=== PATIENT | female | born 1995 | race Caucasian/White ===

== ENCOUNTER 2017-10-31 03:36 | Emergency (ER) | payer OTHER ==
[2017-10-31] MEDS ORDERED: ONDANSETRON 4 MG/2 ML VIAL IVP ONE ×2 (03:54→05:28)
[2017-10-31] MEDS ORDERED: NS 1,000 ML IV ONE ×2 (03:54)
[2017-10-31] MEDS ORDERED: KETOROLAC 30 MG/1 ML SDV IVP ONE (03:54)
[2017-10-31] MEDS ORDERED: HYDROmorphONE/DILAUDID 2 MG/ML INJ IVP ONE (03:54)
--- NOTE | 2017-10-31 03:58 | EDPHY ---
H & P Stated Complaint: LOWER ABD PAIN/VOMITING Time Seen by Provider: 10/31/17 03:48 HPI/ROS: HPI The patient presents with lower abdominal pain which began at about 8:00 p.m. Last night after eating dinner. The pain started gradually and has been constant throughout the night. She had some improvement after taking Tylenol at about 10:00 p.m.. As she awoke at 2:00 a.m. With severe pain and that is what brought her into the emergency department. The pain radiates to her flanks bilaterally and is rated as severe. She has had vomiting as well. She reports constipation over the last several days, having small bowel movements for 3 days. She has a Mirena IUD and is unsure of her last menstrual period. REVIEW OF SYSTEMS Constitutional: No fever, no chills. Eyes: No discharge. ENT: No sore throat. Cardiovascular: No chest pain, no palpitations. Respiratory: No cough, no shortness of breath. Gastrointestinal: No abdominal pain, no vomiting. Genitourinary: No hematuria. Musculoskeletal: No back pain. Skin: No rashes. Neurological: No headache. PMHx: Attention deficit hyperactivity disorder Soc Hx: FHx: PHYSICAL General Appearance: Alert, tearful and uncomfortable appearing Eyes: Pupils equal and round no pallor or injection ENT, Mouth: Mucous membranes moist Respiratory: There are no retractions, lungs are clear to auscultation Cardiovascular: Tachycardic rate and regular rhythm Gastrointestinal: Abdomen is soft and non-tender, no masses, bowel sounds normal Back, no CVA tenderness Neurological: A&O, moves all extremities Skin: Warm and dry, no rashes Musculoskeletal: Neck is supple non tender Extremities: symmetrical, full range of motion Psychiatric: Patient is oriented X 3, there is no agitation Source: Patient Exam Limitations: No limitations - Personal History LMP (Females 10-55): IUD In Place Current Tetanus Diphtheria and Acellular Pertussis (TDAP): Yes - Medical/Surgical History Hx Asthma: No Hx Chronic Respiratory Disease: No Hx Diabetes: No Hx Cardiac Disease: No Hx Renal Disease: No Hx Cirrhosis: No Hx Alcoholism: No Hx HIV/AIDS: No Hx Splenectomy or Spleen Trauma: No Other PMH: L EYE SX - Social History Smoking Status: Never smoked Constitutional: Initial Vital Signs Temperature (C) 37.0 C 10/31/17 03:42 Heart Rate 113 H 10/31/17 03:42 Respiratory Rate 20 10/31/17 03:42 Blood Pressure 113/81 H 10/31/17 03:42 O2 Sat (%) 98 10/31/17 03:42 O2 Delivery Mode Room Air Allergies/Adverse Reactions: No Known Allergies Allergy (Unverified 10/31/17 03:40) Home Medications: Medication Instructions Recorded Montelukast Sodium 10/31/17 Mydayis ER 37.5 mg Capsule 10/31/17 ZYRTEC 10/31/17 Medical Decision Making Differential Diagnosis: This is a 21-year-old female who presents from home with several hours of lower abdominal pain now radiating to her back associated with nausea and vomiting. On arrival, uncomfortable appearing with minimal tenderness to her abdomen. Differential diagnosis includes appendicitis, constipation, ruptured ovarian cyst, gastroenteritis. In the emergency department, patient was given IV fluids, antiemetics, pain medication with improvement in her symptoms. Labs were checked and did show a left shift. She did not have any fever. Other labs were unremarkable. Ultrasound performed demonstrated right-sided hemorrhagic ovarian cyst with small amount of free fluid in the pelvis. I feel this is likely cause of her pain. On reassessment, patient is still feeling slightly nauseated. She is given additional L of fluid and Zofran. I have discussed treatment of ovarian cyst with NSAIDs and OBGYN follow-up. I do think constipation could be playing a role given her lack of bowel movements lately. I have recommended MiraLax for this. I have discussed return precautions. - Data Points Laboratory Results: Laboratory Results 10/31/17 04:00 10/31/17 04:00 10/31/17 10/31/17 10/31/17 05:15 04:00 04:00 WBC 10.98 10^3/uL H 10^3/uL (3.80-9.50) RBC 4.72 10^6/uL 10^6/uL (4.18-5.33) Hgb 14.2 g/dL g/dL (12.6-16.3) Hct 41.6 % % (38.0-47.0) MCV 88.1 fL fL (81.5-99.8) MCH 30.1 pg pg (27.9-34.1) MCHC 34.1 g/dL g/dL (32.4-36.7) RDW 13.0 % % (11.5-15.2) Plt Count 248 10^3/uL 10^3/uL (150-400) MPV 10.7 fL fL (8.7-11.7) Neut % (Auto) Not Reported Lymph % (Auto) Not Reported [place] % (Auto) Not Reported Eos % (Auto) Not Reported Baso % (Auto) Not Reported Nucleat RBC Rel Count Not Reported Absolute Neuts (auto) Not Reported Absolute Lymphs (auto) Not Reported Absolute Monos (auto) Not Reported Absolute Eos (auto) Not Reported Absolute Basos (auto) Not Reported Absolute Nucleated RBC Not Reported Immature Gran % Not Reported Seg Neutrophils % 69.0 % % Band Neutrophils % 10.0 % % Lymphocytes % 5.0 % % Monocytes % 14.0 % % Eosinophils % 2.0 % % Basophils % 0 % % Metamyelocytes % 0 % % Myelocytes % 0 % % Promyelocytes % 0 % % Blast Cells % 0 % % Immature Gran # Not Reported Absolute Seg Neuts 7.58 10^/uL H 10^/uL (1.70-6.50) Absolute Band Neuts 1.10 10^3/uL H 10^3/uL (0.00-0.70) Absolute Lymphocytes 0.55 10^3/uL L 10^3/uL (1.00-3.00) Absolute Monocytes 1.54 10^3/uL H 10^3/uL (0.30-0.80) Absolute Eosinophils 0.22 10^3/uL 10^3/uL (0.03-0.40) Absolute Basophils 0.00 10^3/uL L 10^3/uL (0.02-0.10) Absolute Metamyelocyte 0.00 10^3/mL 10^3/mL (0.00-0.00) Absolute Myelocytes 0.00 10^3/mL 10^3/mL (0.00-0.00) Absolute Promyelocytes 0.00 10^3/uL 10^3/uL (0.00-0.00) Absolute Plasma Cells 0.00 10^3/uL 10^3/uL (0.00-0.00) RBC/WBC/PLT Morphology NORMAL (NORMAL) Absolute Blast Cells 0.00 10^3/uL 10^3/uL (0.00-0.00) Plasma Cells % 0 % % Platelet Estimate ADEQUATE (ADEQ) Sodium 140 mEq/L mEq/L (135-145) Potassium 4.2 mEq/L mEq/L (3.3-5.0) Chloride 105 mEq/L mEq/L (97-110) Carbon Dioxide 18 mEq/l L mEq/l (22-31) Anion Gap 17 mEq/L H mEq/L (8-16) BUN 11 mg/dL mg/dL (7-23) Creatinine 0.6 mg/dL mg/dL (0.6-1.0) Estimated GFR > 60 Glucose 112 mg/dL H mg/dL (70-100) Calcium 8.6 mg/dL mg/dL (8.5-10.4) Total Bilirubin 1.0 mg/dL mg/dL (0.1-1.4) Conjugated Bilirubin 0.3 mg/dL mg/dL (0.0-0.5) Unconjugated Bilirubin 0.7 mg/dL mg/dL (0.0-1.1) AST 17 IU/L IU/L (14-46) ALT 32 IU/L IU/L (9-52) Alkaline Phosphatase 60 IU/L IU/L (38-126) Total Protein 6.9 g/dL g/dL (6.3-8.2) Albumin 4.0 g/dL g/dL (3.5-5.0) Lipase 138 IU/L IU/L (23-300) Urine Color YELLOW Urine Appearance CLEAR Urine pH 5.0 (5.0-7.5) Ur Specific [place] 1.025 (1.002-1.030) Urine Protein NEGATIVE (NEGATIVE) Urine Ketones 2+ H (NEGATIVE) Urine Blood 1+ H (NEGATIVE) Urine Nitrate NEGATIVE (NEGATIVE) Urine Bilirubin NEGATIVE (NEGATIVE) Urine Urobilinogen NEGATIVE EU EU (0.2-1.0) Ur Leukocyte Esterase NEGATIVE (NEGATIVE) Urine RBC 10-15 /hpf H /hpf (0-3) Urine WBC 1-3 /hpf /hpf (0-3) Ur Epithelial Cells TRACE /lpf /lpf (NONE-1+) Urine Mucus TRACE /lpf /lpf (NONE-1+) Urine Glucose NEGATIVE (NEGATIVE) Medications Given: Discontinued Medications Acetaminophen (Tylenol) 1,000 mg PO EDNOW ONE Stop: 10/31/17 05:55 Last Admin: 10/31/17 05:56 Dose: 1,000 mg Hydromorphone HCl (Dilaudid) 0.5 mg IVP EDNOW ONE Stop: 10/31/17 03:55 Last Admin: 10/31/17 04:07 Dose: 0.5 mg Sodium Chloride (Ns) 1,000 mls @ 0 mls/hr IV EDNOW ONE; Wide Open PRN Reason: Protocol Stop: 10/31/17 03:55 Last Admin: 10/31/17 04:09 Dose: 1,000 mls Sodium Chloride (Ns) 1,000 mls @ 0 mls/hr IV EDNOW ONE; Wide Open PRN Reason: Protocol Stop: 10/31/17 03:55 Last Admin: 10/31/17 04:09 Dose: 1,000 mls Ketorolac Tromethamine (Toradol) 15 mg IVP EDNOW ONE Stop: 10/31/17 03:55 Last Admin: 10/31/17 04:05 Dose: 15 mg Ondansetron HCl (Zofran) 4 mg IVP EDNOW ONE Stop: 10/31/17 03:55 Last Admin: 10/31/17 04:09 Dose: 4 mg Ondansetron HCl (Zofran) 4 mg IVP EDNOW ONE Stop: 10/31/17 05:29 Last Admin: 10/31/17 05:31 Dose: 4 mg Departure - Departure Disposition: Home, Routine, Self-Care Clinical Impression: Abdominal pain, Nausea & vomiting, Hemorrhagic ovarian cyst Condition: Good Instructions: Ruptured Ovarian Cyst (ED) Additional Instructions: I recommend you take naproxen 500 mg twice a day for your pain. If the pain is not improved with this, then you should take Tylenol 650 mg with it. You can take the Tylenol every 6 hr. I recommend that you purchase MiraLax which is available [id number].
[2017-10-31 04:13] LABS: PLATELET COUNT 248 10^3/uL (150-400)
[2017-10-31] MEDS ORDERED: ACETAMINOPHEN 500 MG TAB PO ONE (05:54)
[2017-10-31] MEDS ORDERED: ACETAMINOPHEN 500 MG TAB ONE (05:55)
[2017-10-31] MEDS ORDERED: ONDANSETRON 4MG PREPACK#2 BTL TAKEHOME ONE (06:26)
[2017-10-31 07:18] VITALS: BP 122/59
== END 2017-10-31 07:18 | disposition home or self-care (01) ==
DX: N83.201 Unspecified ovarian cyst, right side (principal); E86.9 Volume depletion, unspecified
CPT/HCPCS: 96374; J1170; J1885; J2405

== ENCOUNTER 2018-08-12 15:41 | Emergency (ER) | payer OTHER ==
[2018-08-12] MEDS ORDERED: NS 500 ML IV ONE (15:50)
--- NOTE | 2018-08-12 15:58 | EDPHY ---
H & P Time Seen by Provider: 08/12/18 15:41 HPI/ROS: HPI Seizures. 22-year-old female by ambulance. Her mother is present in the examination room as well. This patient has a history of a seizure disorder. 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 She has been evaluated by a neurologist down at [facility] in [place]. She has a scheduled appointment at this hospital for a 3 day seizure workup and study coming up in a couple of weeks. She has a history of attention deficit hyperactivity disorder. She was video conferencing with her counselor/therapist when she started having a seizure. She currently is taking gabapentin as a seizure prevention medication. Although her neurologist feels that the seizures are likely psychogenic in nature she was instructed to keep taking the gabapentin until seen for more formal workup in a couple of weeks. She apparently took 1 300 mg tablet of gabapentin as the seizure was starting. EMS reports they witnessed 2 tonic- clonic seizures lasting roughly 30-40 seconds. She was given 2 mg of IV Versed by EMS. On arrival she seems confused, she has tangential thoughts and rambles on nonsensically. Her mother reports this is typical of her seizure disorder. EMS reports a blood sugar of 77. ROS: Constitutional: No fever, no chills. As above. Eyes: No discharge. No changes in vision. ENT: No sore throat. No nasal congestion or rhinorrhea. No tongue injury. Respiratory: No cough. No shortness of breath. Cardiac: No chest pain, no palpitations. Gastrointestinal: No abdominal pain, no vomiting, no diarrhea. Genitourinary: No hematuria. No dysuria or increased frequency with urination. Musculoskeletal: No back pain. No neck pain. No myalgias or arthralgias. Skin: No rashes. Neurological: No headache. No focal weakness or altered sensation. Past medical history: As above. Attention deficit hyperactivity disorder. Anxiety. Asthma. Social history: Nonsmoker. No alcohol. No history of IV drugs or street drugs. She is here with her mother. Physical Exam: General Appearance: Alert, she is not in distress. She intermittently rambles nonsensically. She will follow basic commands. This patient appears well- hydrated and well-nourished. Head: Normocephalic atraumatic. Eyes: Pupils equal and round and reactive to light at 3-2 mm bilaterally, no pallor or injection. No lid edema, erythema or injection. ENT, Mouth: Mucous membranes are moist. The pharyngeal tissues are unremarkable. No edema or swelling. No asymmetry suggestive of abscess. No erythema or exudates. No tongue bite wounds or abrasions noted. Respiratory: There are no retractions, lungs are clear to auscultation with good air movement bilaterally. Cardiovascular: Regular rate and rhythm. Borderline tachycardia. No murmur. Gastrointestinal: Abdomen is soft and nontender, no masses, bowel sounds normal. No focal tenderness at McBurney's point. No Long sign. Neurological: Motor sensory function is grossly intact. Cranial nerves are normal. Skin: Warm and dry, no rashes. Musculoskeletal: Neck is supple and nontender. Extremities are symmetrical. All joints range without pain or impingement. Psychiatric: No agitation. No depression. Database: EKG: Imaging: Procedures: Emergency department course: Triage vital signs reviewed. She is moderately tachycardic and mildly hypertensive. Vital signs are otherwise normal. This patient presents with history of a seizure disorder and what her mother describes as a typical episode of seizures as discussed above. An IV was established by EMS. She will be started on IV normal saline with 500 cc to 1 L to be given over the next hour. Basic blood work including metabolic panel to be obtained. She received 2 mg of IV Versed per EMS. IV Ativan is at the bedside if her seizures return. 5:00 p.m., the patient was re-evaluated, still intermittently confused and talking nonsensically. The mother is currently trying to get a hold of her neurologist at [facility]. I will talk to this physician if possible regarding further management disposition. Her mother does not feel comfortable with her going home on her usually prescribed gabapentin. Her blood work has been reviewed and is unremarkable. 5:20 p.m., spoke with [facility]gent Care neurologist Dr. Jose R Carey. He had axis of this patient's records and was familiar with the patient. Case discussed with him in detail. He recommends we start the patient on Lamictal 25 mg at bedtime. She will be given her 1st dose in the emergency department. Plan will be to move up her follow-up appointment which is currently scheduled for September to week and she will be seen in clinic. 6:10 p.m., the patient was re-evaluated, she is sitting upright at this time. Her mental status has completely cleared. She is alert and oriented x3. She is responding to questions appropriately and in full sentences. Repeat neurologic Assessment is nonfocal. I discussed my conversation with [facility] neurologist Dr. Carey as noted above with both the patient and her mother. The patient has been given 25 mg of oral Lamictal in the emergency department. She feels comfortable being discharged with her mother. Her mother feels comfortable with this plan. I will prescribe Lamictal 25 mg at bedtime to start her on this medication. I explained to the mother and the patient the medication would need to be titrated up and that this will be done by Neurology. I also explained that the patient would be seen in neurology clinic at [facility] early next week. They are to call the clinic tomorrow for appointment time. They feel comfortable with this plan. Return to emergency department precautions were discussed with both of them. All of their questions were answered. The patient was discharged in good condition with her mother. Differential Diagnosis: The differential diagnosis on this patient includes but is not limited to pseudo seizure, psychogenic seizures, epilepsy. Hyponatremia, hypoglycemia, intracranial hemorrhage unlikely. This represents a partial list of diagnoses considered. These considerations are based on history, physical exam, past history, reassessment and diagnostic testing. Smoking Status: Never smoked Constitutional: Initial Vital Signs Temperature (C) 37.3 C 08/12/18 15:45 Heart Rate 122 H 08/12/18 15:45 Respiratory Rate 20 08/12/18 15:45 Blood Pressure 145/104 H 08/12/18 15:45 O2 Sat (%) 95 08/12/18 15:45 O2 Delivery Mode Room Air Allergies/Adverse Reactions: No Known Allergies Allergy (Unverified 10/31/17 03:40) Home Medications: Medication Instructions Recorded Montelukast Sodium 10/31/17 Mydayis ER 37.5 mg Capsule 10/31/17 Ondansetron Odt [Zofran Odt 4 mg 4 mg PO Q4 PRN #10 tab 10/31/17 (*)] ZYRTEC 10/31/17 Atomoxetine HCl 08/12/18 Desvenlafaxine 08/12/18 Gabapentin 08/12/18 LORazepam 08/12/18 lamoTRIgine [LamICTAL] 25 mg PO DAILY #10 tab 08/12/18 Medical Decision Making - Data Points Laboratory Results: Laboratory Results 08/12/18 16:10 08/12/18 16:10 08/12/18 08/12/18 08/12/18 16:10 16:10 16:10 WBC 7.60 10^3/uL 10^3/uL (3.80-9.50) RBC 4.53 10^6/uL 10^6/uL (4.18-5.33) Hgb 13.5 g/dL g/dL (12.6-16.3) Hct 39.9 % % (38.0-47.0) MCV 88.1 fL fL (81.5-99.8) MCH 29.8 pg pg (27.9-34.1) MCHC 33.8 g/dL g/dL (32.4-36.7) RDW 13.2 % % (11.5-15.2) Plt Count 296 10^3/uL 10^3/uL (150-400) MPV 10.0 fL fL (8.7-11.7) Neut % (Auto) 63.4 % % (39.3-74.2) Lymph % (Auto) 21.3 % % (15.0-45.0) [place] % (Auto) 9.2 % % (4.5-13.0) Eos % (Auto) 4.3 % % (0.6-7.6) Baso % (Auto) 1.3 % % (0.3-1.7) Nucleat RBC Rel Count 0.0 % % (0.0-0.2) Absolute Neuts (auto) 4.81 10^3/uL 10^3/uL (1.70-6.50) Absolute Lymphs (auto) 1.62 10^3/uL 10^3/uL (1.00-3.00) Absolute Monos (auto) 0.70 10^3/uL 10^3/uL (0.30-0.80) Absolute Eos (auto) 0.33 10^3/uL 10^3/uL (0.03-0.40) Absolute Basos (auto) 0.10 10^3/uL 10^3/uL (0.02-0.10) Absolute Nucleated RBC 0.00 10^3/uL 10^3/uL (0-0.01) Immature Gran % 0.5 % % (0.0-1.1) Immature Gran # 0.04 10^3/uL 10^3/uL (0.00-0.10) Sodium 138 mEq/L mEq/L (135-145) Potassium 3.7 mEq/L mEq/L (3.5-5.2) Chloride 109 mEq/L mEq/L (97-110) Carbon Dioxide 19 mEq/l L mEq/l (22-31) Anion Gap 10 mEq/L mEq/L (6-14) BUN 16 mg/dL mg/dL (7-23) Creatinine 0.7 mg/dL mg/dL (0.6-1.0) Estimated GFR > 60 Glucose 95 mg/dL mg/dL (70-100) Calcium 8.6 mg/dL mg/dL (8.5-10.4) Beta HCG, Qual NEGATIVE Medications Given: Discontinued Medications Sodium Chloride (Ns) 500 mls @ 0 mls/hr IV EDNOW ONE; Wide Open PRN Reason: Protocol Stop: 08/12/18 15:51 Last Admin: 08/12/18 16:01 Dose: 500 mls Lamotrigine (Lamictal) 25 mg PO EDNOW ONE Stop: 08/12/18 17:31 Last Admin: 08/12/18 17:49 Dose: 25 mg Departure - Departure Disposition: Home, Routine, Self-Care Clinical Impression: Seizure disorder Condition: Good Instructions: Recurrent Seizures in Adults (ED) Additional Instructions: Read and follow provided instructions. I spoke with neurologist, Dr. Carey, a [facility]. They will get you in to be seen in clinic with your neurologist early next week. Please call tomorrow morning for appointment time. Take medication as prescribed for seizures at night before bed. Call you're neurologist at [facility] immediately should she developed a rash as discussed. Return to the emergency department for seizure or other serious concerns. Referrals: Patient,NotPresent [Unknown] - As per Instructions Prescriptions: lamoTRIgine [LamICTAL] 25 mg PO DAILY #10 tab
[2018-08-12 16:18] LABS: PLATELET COUNT 296 10^3/uL (150-400)
[2018-08-12] MEDS ORDERED: lamoTRIgine 100 MG TAB PO ONE (17:20)
[2018-08-12] MEDS ORDERED: lamoTRIgine 25 MG TAB PO ONE (17:30)
[2018-08-12 17:51] VITALS: BP 153/77
== END 2018-08-12 18:56 | disposition home or self-care (01) ==
LOC: EDUNIT#
DX: G40.909 Epilepsy, unspecified, not intractable, without status epilepticus (principal); F90.9 Attention-deficit hyperactivity disorder, unspecified type; Z79.899 Other long term (current) drug therapy